=== PATIENT | female | born 1950 | race African-American/Black ===

== ENCOUNTER 2020-08-18 10:04 | Outpatient (CLI) | payer MEDICARE, MEDICAID | END 2020-08-18 10:05 | disposition home or self-care (01) | LOC: DTY/OP 10:04 | PROVIDERS: ATTEND Family Medicine | DX: E11.21 Type 2 diabetes mellitus with diabetic nephropathy (principal) | CPT/HCPCS: 97802 ==

== ENCOUNTER 2021-05-14 22:04 | Observation (INO) | payer MEDICARE, MEDICAID ==
[2021-05-14 23:29] VITALS: BMI 27.3
[2021-05-15] MEDS ORDERED: HumaLOG 300 UNITS/3 ML VIAL SC PRN (01:38)
[2021-05-15] MEDS ORDERED: Dextrose 5% in Water 1,000 ML IV PRN (01:38)
[2021-05-15] MEDS ORDERED: Dextrose 50% Abboject 50 ML SYRINGE SLOW IVP PRN (01:38)
[2021-05-15] MEDS: Enoxaparin Sodium 40 MG/0.4 ML SYRINGE SC SCH (07:32)
[2021-05-15] MEDS: Glycerin Adult Supp. (24 ct jar) PR SCH ×2 (07:32→07:38)
[2021-05-15] MEDS: Lisinopril 10 MG TAB PO SCH (07:33)
[2021-05-15] MEDS: Cilostazol 100 MG TAB PO SCH ×2 (07:33→15:31)
[2021-05-15] MEDS: Senokot S 8.6-50 MG TAB PO SCH ×2 (07:33→19:41)
[2021-05-15] MEDS: Lorazepam 0.5 MG TAB PO PRN ×2 (07:42→19:43)
[2021-05-15] MEDS ORDERED: Simethicone Chewable 80 MG TAB PO PRN (08:40)
[2021-05-15] MEDS ORDERED: Polyethylene Glycol 3350 17 GM Packet PO SCH (09:00)
[2021-05-15] MEDS ORDERED: Oxybutynin 5 MG TAB PO SCH (09:00)
[2021-05-15] MEDS ORDERED: Bisacodyl 10 MG SUPP PR SCH (09:30)
[2021-05-15] MEDS: HumaLOG 300 UNITS/3 ML VIAL SC PRN (17:13)
[2021-05-15] MEDS ORDERED: Calcium Carbonate 500 MG ChewTAB PO SCH (19:15)
[2021-05-15] MEDS: Polyethylene Glycol 3350 17 GM Packet PO SCH (19:42)
[2021-05-15] MEDS ORDERED: Estrogens, Conjugated 30 GM TUBE VAG SCH (21:00)
[2021-05-15] MEDS ORDERED: Clopidogrel Bisulfate 75 MG TAB PO SCH (21:00)
[2021-05-16] MEDS: Senokot S 8.6-50 MG TAB PO SCH (07:56)
[2021-05-16] MEDS: Cilostazol 100 MG TAB PO SCH (07:56)
[2021-05-16] MEDS: Glycerin Adult Supp. (24 ct jar) PR SCH (07:57)
[2021-05-16] MEDS: Enoxaparin Sodium 40 MG/0.4 ML SYRINGE SC SCH (07:57)
[2021-05-16] MEDS: Lisinopril 10 MG TAB PO SCH (07:58)
[2021-05-16] MEDS: Polyethylene Glycol 3350 17 GM Packet PO SCH (08:00)
[2021-05-16] MEDS ORDERED: Regadenoson 0.4 MG/5 ML SYRINGE ONE (09:08)
[2021-05-16 12:02] VITALS: BP 147/70; TEMP 97.5
[2021-05-16] MEDS: HumaLOG 300 UNITS/3 ML VIAL SC PRN (13:08)
[2021-05-16] MEDS ORDERED: Fleet Enema 133 ML BOT PR SCH (13:15)
== END 2021-05-16 16:42 | disposition home or self-care (01) ==
LOC: 2SW 23:08
PROVIDERS: ADMIT Student in an Organized Health Care Education/Training Program; ATTEND Student in an Organized Health Care Education/Training Program
DX: R07.89 Other chest pain (principal); K59.00 Constipation, unspecified; N81.0 Urethrocele; I25.10 Atherosclerotic heart disease of native coronary artery without angina pectoris; E11.51 Type 2 diabetes mellitus with diabetic peripheral angiopathy without gangrene; R79.1 Abnormal coagulation profile; E78.5 Hyperlipidemia, unspecified; I10 Essential (primary) hypertension; R74.8 Abnormal levels of other serum enzymes; I25.2 Old myocardial infarction; K21.9 Gastro-esophageal reflux disease without esophagitis; Z79.02 Long term (current) use of antithrombotics/antiplatelets; Z79.4 Long term (current) use of insulin; Z79.899 Other long term (current) drug therapy; Z95.5 Presence of coronary angioplasty implant and graft
CPT/HCPCS: 78452; 82962 ×2; 93017; A9500; 36416; 96372; G0378; J1650; J1815; J2785